=== PATIENT | male | born 1995 | race Caucasian/White ===

== ENCOUNTER 2024-10-01 11:32 | Emergency (ER) | payer MEDICAID ==
[~2024-10-01] VITALS: Ht 157.5 cm; Wt 170.0 kg
[2024-10-01 11:55] VITALS: O2SAT 100
[2024-10-01] MEDS: HYDROCODONE/ACETAMINOPHEN 5/325MG TABLET PO ONE (14:00)
[2024-10-01] MEDS: TETANUS, DIPHTHERIA, PERTUSSIS VAC/PF 0.5ML (>10YR OLD) IM ONE (14:01)
[2024-10-01] MEDS: CEFAZOLIN 1000MG PREMIX 50 ML IV ONE (14:30)
[2024-10-01] MEDS ORDERED: CEPH500C2 MT (15:05)
[2024-10-01] MEDS ORDERED: IBUP-2030 MT (15:05)
[2024-10-01 16:58] VITALS: BP 113/68; PULSE 78; RESP 18; TEMP 36.6; O2SAT 100
== END 2024-10-01 17:00 | disposition home or self-care (01) ==
LOC: ER 11:32
DX: S71.132A Puncture wound without foreign body, left thigh, initial encounter (principal); W29.4XXA Contact with nail gun, initial encounter; Y93.89 Activity, other specified; Y92.89 Other specified places as the place of occurrence of the external cause; Y99.8 Other external cause status
CPT/HCPCS: 73562; 90715; 90471; 96365; 99284; J0690; Z7610 ×2